=== PATIENT | female | born 2000 | race African-American/Black ===

== ENCOUNTER 2019-09-19 09:21 | Emergency (ER) | payer MEDICAID ==
[~2019-09-19] VITALS: Ht 162.6 cm; Wt 59.4 kg
[2019-09-19 09:45] VITALS: BP 107/73
[2019-09-19] MEDS ORDERED: NKM (09:46)
--- NOTE | 2019-09-19 10:02 | NUR ---
Patient arrived to ED by car from home complaining of fever, body aches, stuffy nose, and cough for 3 days. She said she has had no emesis or diarrhea, and that she has no appetite and has not eaten any significant food for 3 days. Has coughing up moderate amount of green/yellow sputum. Patient resting in bed.
[2019-09-19] MEDS ORDERED: Acetaminophen 500mg (ES) tab ORAL ONE (10:30)
--- NOTE | 2019-09-19 11:42 | Emergency Room Report ---
History of Present Illness General Chief Complaint: Flu Like Symptoms Source: Patient Present Illness HPI Patient states that for the past 3 days she has had sore throat, body aches, fatigue and poor appetite. She is also had coughing that is been worse at night. She denies sputum production. She states she has had drenching sweats at nighttime. She denies headache or neck pain. She denies chest pain or shortness of breath. She has no other complaints. Allergies: Uncoded Allergies: CITRUS (Allergy, Unknown, 09/19/19) Patient History Past Medical History: none, see triage record Social History: Denies: smoking, alcohol use, drug use Last Menstrual Period: on control pill/ 08/30/2019 Reviewed Nursing Documentation: PMH: Agreed; PSxH: Agreed Nursing Documentation-PMH Past Medical History: No Stated History Review of Systems All Other Systems: negative except mentioned in HPI Physical Exam Vital Signs Date Time Temp Pulse Resp B/P (MAP) Pulse Ox O2 Delivery O2 Flow Rate FiO2 09/19/19 09:42 100.0 99 18 107/73 (84) 99 Room Air Sp02 EP Interpretation: reviewed, normal General Appearance: no apparent distress, alert, GCS 15, non-toxic Head: normocephalic, atraumatic Eyes: bilateral eye normal inspection, bilateral eye PERRL ENT: hearing grossly normal, no angioedema, normal voice, uvula midline, pharyngeal erythema Neck: full range of motion, supple/symm/no masses Respiratory: chest non-tender, lungs clear, normal breath sounds, no respiratory distress, no retraction, no accessory muscle use, speaking full sentences Cardiovascular #1: regular rate, rhythm, no edema Gastrointestinal: normal bowel sounds, non tender, soft, non-distended, no guarding, no rebound Rectal: deferred Musculoskeletal: back normal, normal range of motion, gait/station normal, non- tender Neurologic: alert, motor strength/tone normal, oriented x3, sensory intact, responsive, speech normal Psychiatric: judgement/insight normal, memory normal, mood/affect normal, no suicidal/homicidal ideation Skin: no rash, normal color Medical Decision Making Diagnostic Impression: Primary Impression: Influenza-like symptoms Additional Impression: Viral syndrome ER Course This patient has a clinical presentation consistent with influenza. Patient overall is nontoxic with no evidence of pneumonia on chest x-ray. There does not appear to be any emergency complications. Do not feel this patient needs admission at this time. The patient stable vital signs. The patient given close return precautions and followup instructions. Laboratory Tests Test 09/19/19 10:35 Urine HCG, Qualitative Negative (NEGATIVE) Chest X-Ray Diagnostic Results Chest X-Ray Diagnostic Results : Chest X-Ray Ordered: Yes # of Views/Limited/Complete: 1 View Indication: Other - cough EP Interpretation: Yes Interpretation: no consolidation, no effusion, no pneumothorax, no acute cardiopulmonary disease Impression: No acute disease Electronically Signed by: Ericka Cruz DO Last Vital Signs Date Time Temp Pulse Resp B/P (MAP) Pulse Ox O2 Delivery O2 Flow Rate FiO2 09/19/19 11:03 99.0 09/19/19 09:45 99 18 Room Air 09/19/19 09:45 107/73 99 Status: improved Disposition: HOME, SELF-CARE Condition: Improved Referrals: NON PHYSICIAN (PCP) Ericka Cruz DO Sep 19, 2019 11:42
[2019-09-19] MEDS ORDERED: ROBITUSSIN COU237 M2 PO (11:45)
[2019-09-19] MEDS ORDERED: IBUPROFEN600 MG ORAL (11:45)
[2019-09-19] MEDS ORDERED: ACETAMINOPHEN500 M3 ORAL (11:45)
[2019-09-19 11:50] VITALS: BP 111/75
--- NOTE | 2019-09-19 11:50 | NUR ---
Reviewed discharge instructions and medications with patient. Patient verbalized understanding.
--- NOTE | 2019-09-19 13:55 | Diagnostic Imaging Report ---
Indication: Cough Technique: One view of the chest Comparison: none Findings: Lungs and pleural spaces are clear. Heart size is normal Impression: No acute process
== END 2019-09-19 11:50 | disposition home or self-care (01) ==
LOC: EMR 10:05
DX: J11.1 Influenza due to unidentified influenza virus with other respiratory manifestations (principal); B34.9 Viral infection, unspecified; Z91.018 Allergy to other foods
CPT/HCPCS: 71045; 81025; 86710; Z7502; 99283

== ENCOUNTER 2020-04-09 21:42 | Emergency (ER) | payer MEDICAID ==
[~2020-04-09] VITALS: Ht 162.6 cm; Wt 61.2 kg
[~2020-04-09 21:42] MED LIST: ACETAMINOPHEN500 M3 ORAL; IBUPROFEN600 MG ORAL; NKM; ROBITUSSIN COU237 M2 PO
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
[2020-04-09 21:54] VITALS: BP 105/70
[2020-04-09] MEDS ORDERED: IBUPROFEN600 M1 ORAL (22:03)
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
--- NOTE | 2020-04-09 22:04 | NUR ---
ED Nurse Note: pt taken to x ray via w/c in stable condition.
--- NOTE | 2020-04-09 22:21 | NUR ---
ED Nurse Note: PT back from x ray
[2020-04-09 22:24] VITALS: BP 100/73
--- NOTE | 2020-04-09 22:24 | NUR ---
ER DISCHARGE NOTE: Patient is cleared to be discharged per ERMD, pt is aox4, on room air, with stable vital signs. pt was given dc and prescription instructions, pt was able to verbalize understanding, pt id band removed without complications. pt is able to ambulate with steady gait. pt took all belongings.
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
== END 2020-04-09 22:24 | disposition home or self-care (01) ==
LOC: EMR 22:10
DX: S16.1XXA Strain of muscle, fascia and tendon at neck level, initial encounter (principal); S80.12XA Contusion of left lower leg, initial encounter; S70.11XA Contusion of right thigh, initial encounter; V43.52XA Car driver injured in collision with other type car in traffic accident, initial encounter; Y92.9 Unspecified place or not applicable; Z88.8 Allergy status to other drugs, medicaments and biological substances
CPT/HCPCS: 72040; 73610; Z7502; 99284